=== PATIENT | female | born 1945 | race Caucasian/White ===

== ENCOUNTER 2016-04-23 15:49 | Inpatient (IN) | payer MEDICARE, OTHER ==
[2016-04-23 15:59] VITALS: BP 124/70
--- NOTE | 2016-04-23 16:40 | ED Physician Chart ---
Chief Complaint/HPI - Patient Information Date Seen:: 04/23/16 Time Seen:: 16:07 Chief Complaint:: psychosis History of Present Illness:: THIS IS A 70 YR OLD FEMALE SENT FROM THE [facility] FOR [facility]ALUATION AND TREATMENT BECAUSE SHE REFUSED HER MEDICATIONS. SHE HAS BEEN ACTING OUT. SHE HAS THYROID DISEASE,ARTHRITIS AND SEVERE DEPRESSION. Allergies:: Allergies Allergy/AdvReac Type Severity Reaction Status Date / Time etanercept AdvReac Verified 04/23/16 15:52 ibuprofen AdvReac Verified 04/23/16 15:52 Vitals:: Vital Signs - 8 hr 04/23/16 04/23/16 15:59 16:00 Temp 97.9 F HR 84 RR 16 BP 124/70 124/70 O2 Sat % 97 Historian:: Patient, Medical Records Review:: Nurse's Note Reviewed Review of Systems - Review of Systems General/Constitutional: No fever, No chills, No weight loss, No weakness, No diaphoresis, No edema, No loss of appetite Skin: No skin lesions, No rash, No bruising Head: No headache, No light-headedness Eyes: No loss of vision, No pain, No diplopia ENT: No earache, No nasal drainage, No sore throat, No tinnitus Neck: No neck pain, No swelling, No thyromegaly, No stiffness, No mass noted Cardio Vascular: No chest pain, No palpitations, No PND, No orthopnea, No edema Pulmonary: No SOB, No cough, No sputum, No wheezing GI: No nausea, No vomiting, No diarrhea, No pain, No melena, No hematochezia, No constipation, No hematemesis G/U: No dysuria, No frequency, No hematuria Musculoskeletal: Bone or joint pain, No back pain, No muscle pain, Other (BOTH HANDS AND BOTH FEET A) Endocrine: No polyuria, No polydipsia Psychiatric: Prior psych history, Depression, No anxiety, No suicidal ideation Hematopoietic: No bruising, No lymphadenopathy Allergic/Immuno: No urticaria, No angioedema Neurological: No syncope, No focal symptoms, No weakness, No paresthesia, No headache, No seizure, No dizziness, No confusion, No vertigo Past Medical History - Past Medical History Obtainable: Yes Past Medical History: Thyroid disorder, Arthritis Family History: None Social History: Non Smoker, No Alcohol, No Drug Use Surgical History: None Psychiatricy History: Depression Medication: Reviewed Family Medical History - Family Member Sister History Unknown: Yes Physical Exam - Physical Examination General/Constitutional: Awake, Well-developed, well-nourished, Alert, No distress, GCS 15, Non-toxic appearing, Ambulatory Head: Atraumatic Eyes: Lids, conjuctiva normal, PERRL, EOMI Skin: Nl inspection, No rash, No skin lesions, No ecchymosis, Well hydrated, No lymphadenopathy ENMT: External ears, nose nl, Nasal exam nl, Lips, teeth, gums nl Neck: Nontender, Full ROM w/o pain, No JVD, No nuchal rigidity, No bruit, No mass, No stridor Respiratory: Nl effort/Exclusion, Clear to Auscultation, No Wheeze/Rhonchi/Rales Cardio Vascular: RRR, No murmur, gallop, rubs, NL S1 S2 GI: No tenderness/rebounding/guarding, No organomegaly, No hernia, Normal BS's, Nondistended, No mass/bruits, No McBurney tenderness : No CVA tenderness Extremities: No tenderness or effusion, Full ROM, normal strength in all extremities, No edema, Normal digits & nails Other Extremities comments:: THERE IS SEVERE DEFORMITY OF BOTH THE HANDS AND FEET SECONDARY TO RA. Neuro/Psych: Alert/oriented, DTR's symmetric, Normal sensory exam, Normal motor strength, Judgement/insight normal, Mood normal (DEPRESSION), Normal gait, No focal deficits Misc: normal gait, Normal back, No paraspinal tenderness Labs/Radiology/EKG Results - Lab Results Results: Abnormal Lab Results 04/23/16 04/23/16 04/23/16 16:15 16:15 16:15 WBC 10.1 RBC 5.26 H Hgb 14.9 Hct 44.9 MCV 85.3 MCH 28.3 MCHC Differential 33.1 RDW 14.5 Plt Count 382 MPV 7.1 Neutrophils % 66.4 Lymphocytes % 26.8 Monocytes % 3.2 Eosinophils % 2.0 Basophils % 1.6 PT 11.1 INR 1.07 Sodium Potassium Chloride Carbon Dioxide Anion Gap BUN Creatinine Est GFR ( Amer) Est GFR (Non-Af Amer) BUN/Creatinine Ratio Glucose Calcium Total Bilirubin AST ALT Alkaline Phosphatase Troponin I Total Protein Albumin Globulin Albumin/Globulin Ratio Triglycerides 93 Cholesterol 184 LDL Cholesterol Direct 132 HDL Cholesterol 38 Urine Source Urine Color Urine Clarity Urine pH Ur Specific [place] Urine Protein Urine Glucose (UA) Urine Ketones Urine Blood Urine Nitrate Urine Bilirubin Urine Urobilinogen Ur Leukocyte Esterase Urine RBC Urine WBC Ur Epithelial Cells Urine Bacteria 04/23/16 04/23/16 04/23/16 16:15 16:15 16:30 WBC RBC Hgb Hct MCV MCH MCHC Differential RDW Plt Count MPV Neutrophils % Lymphocytes % Monocytes % Eosinophils % Basophils % PT INR Sodium 142 Potassium 3.5 Chloride 109 H Carbon Dioxide 23.4 Anion Gap 13.1 BUN 20 Creatinine 0.5 L Est GFR ( Amer) TNP Est GFR (Non-Af Amer) TNP BUN/Creatinine Ratio 40.0 Glucose 102 Calcium 10.9 H Total Bilirubin 0.5 AST 21 ALT 13 Alkaline Phosphatase 67 Troponin I < 0.01 L Total Protein 8.5 H Albumin 4.2 Globulin 4.3 Albumin/Globulin Ratio 1.0 Triglycerides Cholesterol LDL Cholesterol Direct HDL Cholesterol Urine Source CLEAN C Urine Color YELLOW Urine Clarity HAZY Urine pH 6.0 Ur Specific Bend Urine Protein 30 H Urine Glucose (UA) NEGATIVE Urine Ketones 40 H Urine Blood MODERATE H Urine Nitrate POSITIVE H Urine Bilirubin NEGATIVE Urine Urobilinogen 0.2 Ur Leukocyte Esterase SMALL H Urine RBC 2-5 Urine WBC 10-25 H Ur Epithelial Cells OCCASIONAL Urine Bacteria MANY - Radiology Results Results: CHEST X-RAY = NAD - EKG Interpretations EKG Time:: 16:27 Rhythm: SINUS TACH [place]: LEFT Rate: 106 ED Septic Shock - . Is Septic Shock (SBP<90, OR Lactate>4 mmol\L) present?: No - <6hrs of presentation: Vital Signs: Vital Signs - 8 hr 04/23/16 04/23/16 15:59 16:00 Temp 97.9 F HR 84 RR 16 BP 124/70 124/70 O2 Sat % 97 Reassessment (Disposition) - Reassessment Reassessment Condition:: Unchanged - Diagnosis Diagnosis:: PSYCHOSIS DEPRESSION SEVERE RA URINARY TRACT INFECTION - Patient Disposition Discharge/Transfer:: Acute Care w/in this hosp Admitting Medical Physician:: Rhys Justin Admitting Psych Physician:: Addy Chadwick Condition at Disposition:: Unchanged ED Discharge Plan - Patient Disposition Instructions: Psychosis
[2016-04-23 16:42] LABS: % BASOPHILS 1.6 % (0.0-2.0); % LYMPHOCYTES 26.8 % (20.0-50.0); % MONOCYTES 3.2 % (2.0-10.0); % NEUTROPHILS 66.4 % (40.0-80.0); HEMATOCRIT 44.9 % (35.0-45.0); HEMOGLOBIN 14.9 gm/dL (11.7-16.1); MEAN CELL VOLUME 85.3 fl (81-100); MEAN CORPUSCULAR HEMOGLOBIN 28.3 pg (27.0-31.0); MEAN CORPUSCULAR HGB CONC 33.1 pg (28.0-36.0); MEAN PLATELET VOLUME 7.1 fl; NEUTROPHILE ABSOLUTE 6.7 Th/cmm (1.8-8.0); PLATELET COUNT 382 Th/cmm (150-400); RED BLOOD COUNT 5.26 Mil/cmm (3.80-5.20); RED CELL DISTRIBUTION WIDTH 14.5 % (11.5-20.0); WHITE BLOOD COUNT 10.1 Th/cmm (4.8-10.8)
[2016-04-23 16:53] LABS: INR 1.07 (0.5-1.4); PROTHROMBIN TIME (TEST) 11.1 SECONDS (9.5-11.5)
[2016-04-23 16:56] LABS: ALKALINE PHOSPHATASE 67 U/L (34-104); ANION GAP 13.1 (7.0-16.0); BILIRUBIN,TOTAL 0.5 mg/dL (0.3-1.0); BUN - UREA NITROGEN 20 mg/dL (7-25); CALCIUM SERUM 10.9 mg/dL (8.6-10.3); CARBON DIOXIDE 23.4 mEq/L (21.0-31.0); CHLORIDE 109 mEq/L (98-107); CREATININE - SERUM 0.5 mg/dL (0.6-1.2); GLUCOSE 102 mg/dL (70-105); POTASSIUM SERUM 3.5 mEq/L (3.5-5.1); SGOT 21 U/L (13-39); SGPT/ALT 13 U/L (7-52); SODIUM SERUM 142 mEq/L (136-145)
[2016-04-23 16:57] LABS: CHOLESTEROL 184 mg/dL (<200); TRIGLYCERIDES 93 mg/dL (<150)
[2016-04-23 17:12] LABS: URINE BILIRUBIN NEGATIVE (NEGATIVE); URINE BLOOD MODERATE (NEGATIVE); URINE COLOR YELLOW; URINE GLUCOSE (UA) NEGATIVE (NEGATIVE); URINE KETONE 40 mg/dL (NEGATIVE); URINE PROTEIN 30 mg/dL (NEGATIVE); URINE UROBILINOGEN 0.2 E.U./dL (0.2 - 1.0)
[2016-04-23 17:13] LABS: URINE BACTERIA MANY /hpf (NONE SEEN); URINE EPITHELIAL CELLS OCCASIONAL /lpf (FEW)
[2016-04-23] MEDS ORDERED: Maalox 30 mL Cup PO PRN (21:13)
[2016-04-23] MEDS ORDERED: Magnesium Hydroxide (MOM) 30 mL UDC PO PRN (21:13)
[2016-04-24] MEDS: Levothyroxine 0.05 Mg Tab PO SCH (06:36)
[2016-04-24] MEDS ORDERED: Budesonide 0.5 Mg/2 mL Ud HHN ONE (06:44)
[2016-04-24] MEDS ORDERED: Albuterol/Ipratropium Neb 3 ML AERS HHN ONE (06:44)
[2016-04-24] MEDS: Hydroxychloroquine 200 mg Tab PO SCH (08:43)
[2016-04-24] MEDS: Multivitamin Tab PO SCH (08:43)
--- NOTE | 2016-04-24 09:17 | Diagnostic Imaging Report ---
CHEST X-RAY: AP view INDICATION: pain COMPARISON: None FINDINGS: Suboptimal lung volume seen with increased bibasal linear densities. No focal consolidation or pleural effusions. Mild chronic changes are seen. Heart size cannot be well assessed on this exam. Degenerative changes of the spine and shoulders are noted. Gas-filled loops of bowel are seen with associated elevation of the diaphragm. IMPRESSION: Suboptimal lung volume with increased bibasal linear markings favoring atelectasis. No focal consolidation identified Gas-filled loops of bowel possibly due to an ileus. Please correlate clinically.
[2016-04-24] MEDS: Sulfamethoxazole/TMP 800/160mg Tab PO SCH (17:10)
--- NOTE | 2016-04-24 22:48 | Consultation ---
HISTORY OF PRESENT ILLNESS: The patient is a 70-year-old female seen at Geropsych Unit at [facility]. PAST MEDICAL HISTORY: Significant for advanced rheumatoid arthritis, hypothyroidism, ____, gastritis, osteoarthritis, osteoporosis, and psychosis. SOCIAL HISTORY: No history of smoking or alcohol abuse. OBSTETRIC HISTORY: P2+0. Menses, postmenopausal. REVIEW OF SYSTEMS: The patient has extensive arthritic pain. PHYSICAL EXAMINATION: GENERAL: Slightly obese female in no obvious respiratory distress. VITAL SIGNS: Include a blood pressure of 110/70, heart rate of 88, and respiration rate of 18. SKIN: Showed no obvious cellulitis. HEENT: Pale conjunctivae. NECK: Supple. LUNGS: There is no rhonchi and no crepitation or bronchial breathing. CARDIOVASCULAR: S1 present. ABDOMEN: Soft, minimal epigastric tenderness. Bowel sound are good. EXTREMITIES: Advanced rheumatoid arthritis with contracture deformities. NEUROLOGIC: The patient had no focal motor deficits. LABORATORY DATA: Include sodium 142, potassium 3.5, chloride 109, bicarbonate 23.4, BUN 20, creatinine 0.5, and glucose of 102. White count of 10.1, hemoglobin 14.9, hematocrit 44.9, and platelet count of 382,000. MEDICAL DIAGNOSES: Include advanced rheumatoid arthritis, osteoporosis, hypothyroidism, , gastritis, osteoarthritis, and glaucoma. TREATMENT PLAN: The patient is on Plaquenil, Xalatan, Synthroid, Pepcid, folic acid, and Colace. Thanks Dr. Chadwick for letting me see your patient. [facility]# [id number]
--- NOTE | 2016-04-24 23:11 | Psychosocial Evaluation ---
IDENTIFYING DATA: The patient is a 70-year-old resident of a community ____ care facility. Information obtained by interviewing the patient as well as reviewing the admission papers and it is reliable. JUSTIFICATION OF HOSPITALIZATION: The patient is admitted here on a voluntary basis in view of her depression and refusal to comply with the treatment. CHIEF COMPLAINT: "I'm already taking 10 different medications, so, I don't want to take anymore." HISTORY OF PRESENT ILLNESS: This is the first psychiatric hospitalization to the [facility] for this patient who is reported to have been depressed and psychotic and has been refusing to comply with the treatment. The patient is on sertraline 50 mg and then Abilify 20 mg at bedtime, but the patient at this time is stating that she does not need to be on these high doses of medication, she should not be taking any. The patient has been convinced at least to try the half the dose of the medication, but the patient is stating that she should not be ____. The patient's coping skills at this time are noted to be very poor. The patient is not able to comply with the treatment. PAST PSYCHIATRIC HISTORY: Details are not known. MEDICAL HISTORY AND PHYSICAL EXAMINATION: Requested by Dr. Justin. SUBSTANCE ABUSE HISTORY: None. PHYSICAL OR SEXUAL ABUSE HISTORY: None. LEGAL PROBLEMS: None at this time. STRENGTH AND ASSETS: The patient is poorly motivated. MENTAL STATUS EXAMINATION: The patient is a 70-year-old, looking her stated age, superficially cooperative. Eye contact is poor. Mood is noted to be irritable. Affect is constricted. The patient's coping skills are noted to be very poor. Sleep and appetite are also noted to be very poor. The patient is stating that she has been with all these medical problems and has been on several different medications and does not need to take one more. The patient at this time is not able to contract for safety. The patient is alert and oriented x 3. The patient's short and long-term memory noted to be intact. DIAGNOSTIC IMPRESSION: AXIS I: Major depressive disorder, recurrent with psychotic symptoms. AXIS II: None. AXIS III: As per Dr. Justin. IMMEDIATE TREATMENT PLAN: The patient is going to be observed and provided with supportive psychotherapy. Once stabilized, the patient is going to be discharged to [facility] to be followed up on an outpatient basis. [facility]# [id number]
[2016-04-25] MEDS: Levothyroxine 0.05 Mg Tab PO SCH (06:34)
[2016-04-25] MEDS: Hydroxychloroquine 200 mg Tab PO SCH (08:50)
[2016-04-25] MEDS: Multivitamin Tab PO SCH (08:50)
[2016-04-25] MEDS: Sulfamethoxazole/TMP 800/160mg Tab PO SCH ×2 (08:50→17:03)
--- NOTE | 2016-04-25 23:48 | Progress Notes ---
PSYCHIATRIC PROGRESS NOTE TIME PATIENT SEEN: 8:30 a.m. SUBJECTIVE: Staff was spoken to. The patient is interviewed. Mood is noted to be irritable. Affect is constricted. The patient is stating that she should not be taking any medications, there is no point in continuing. The patient is still depressed. Coping skills are noted to be very poor. The patient has paranoia, but the patient is denying any command hallucinations today. ASSESSMENT: The patient is still depressed and psychotic. PLAN: Continue the patient with a supportive therapy. I encouraged the patient to come and verbalize the concerns rather than to act out. JOB# [id number]
[2016-04-26] MEDS: Levothyroxine 0.05 Mg Tab PO SCH (06:48)
[2016-04-26] MEDS: Hydroxychloroquine 200 mg Tab PO SCH (09:13)
[2016-04-26] MEDS: Sulfamethoxazole/TMP 800/160mg Tab PO SCH ×2 (09:13→17:05)
[2016-04-26] MEDS: Multivitamin Tab PO SCH (09:13)
[2016-04-26] MEDS: Vitamin B Complex w/Vitamin C Tab PO SCH (17:22)
--- NOTE | 2016-04-26 21:38 | Progress Notes ---
PSYCHIATRIC PROGRESS NOTE TIME PATIENT SEEN: 9:30 a.m. SUBJECTIVE: Staff was spoken to. The patient is interviewed. Mood is noted to be depressed. Affect is constricted. The patient is isolative and withdrawn. The patient's daughter has been spoken at [phone] and she also has been trying to convince her mother to comply with the treatment. The patient at this time is very reluctant and is stated that she has been on these medications for a long period of time and would rather not take it. ASSESSMENT: The patient is still depressed. PLAN: To continue the patient with the supportive therapy. I encouraged the patient to verbalize the concerns rather than to act out. [facility]# [id number]
[2016-04-27] MEDS: Levothyroxine 0.05 Mg Tab PO SCH (06:34)
[2016-04-27] MEDS: Hydroxychloroquine 200 mg Tab PO SCH (09:30)
[2016-04-27] MEDS: Vitamin B Complex w/Vitamin C Tab PO SCH (09:30)
[2016-04-27] MEDS: Sulfamethoxazole/TMP 800/160mg Tab PO SCH ×2 (09:30→16:19)
[2016-04-27] MEDS: Multivitamin Tab PO SCH (09:30)
--- NOTE | 2016-04-27 22:45 | Progress Notes ---
TIME PATIENT SEEN: 4:30 p.m. SUBJECTIVE: Staff was spoken to. The patient is interviewed. Mood is a little bit depressed. Affect is constricted. The patient is stating that she does not want to continue to take the medications. The patient is stating that she has been on them for a long period of time and does not need it. The patient has been having difficult time to cope with the stress. The patient is also refusing to eat. ASSESSMENT: The patient is still depressed and paranoid. PLAN: To continue the patient with the supportive therapy. I encouraged the patient to verbalize the concerns as mentioned in the previous chart. The patient's daughter has already been spoken to and explained about the patient's condition. [facility]# [id number]
[2016-04-28] MEDS: Levothyroxine 0.05 Mg Tab PO SCH (06:57)
[2016-04-28] MEDS: Sulfamethoxazole/TMP 800/160mg Tab PO SCH ×2 (08:03→16:00)
[2016-04-28] MEDS: Vitamin B Complex w/Vitamin C Tab PO SCH (08:03)
[2016-04-28] MEDS: Multivitamin Tab PO SCH (08:03)
[2016-04-28] MEDS: Hydroxychloroquine 200 mg Tab PO SCH (08:03)
--- NOTE | 2016-04-28 23:40 | Progress Notes ---
TIME PATIENT SEEN: 5:00 p.m. SUBJECTIVE: Staff was spoken to. The patient is interviewed. Mood is noted to be irritable. Affect is constricted. The patient is stating that she is sick and tired of taking all the medications and does not want to be on any medications any longer. The patient is stating that she had breakfast and lunch and she is not stopping____. ASSESSMENT: The patient is depressed, but she is reluctant to take the medication. PLAN: To continue the patient with the supportive therapy. I encouraged the patient to verbalize the concerns rather than to act out. JOB# [id number]
[2016-04-29] MEDS: Levothyroxine 0.05 Mg Tab PO SCH (06:54)
[2016-04-29] MEDS: Multivitamin Tab PO SCH (08:08)
[2016-04-29] MEDS: Hydroxychloroquine 200 mg Tab PO SCH (08:08)
[2016-04-29] MEDS: Sulfamethoxazole/TMP 800/160mg Tab PO SCH ×2 (08:09→16:36)
[2016-04-29] MEDS: Vitamin B Complex w/Vitamin C Tab PO SCH (08:09)
--- NOTE | 2016-04-30 01:07 | Progress Notes ---
PSYCHIATRIC PROGRESS NOTE TIME PATIENT SEEN: 10:45 a.m. SUBJECTIVE: Staff was spoken to. The patient is interviewed. Mood is noted to be anxious. The patient is stating that she needs to be out of here from the hospital and she states that she is not willing to take any medication; however, ____. The patient is stating that there is no need for her to be on the medications. The patient has been not eating. Sleep is noted to be poor. The patient has been encouraged to comply with the treatment. The patient, however, has been very reluctant. The patient, however, is not presenting with any threat to harm self or others. This has been conveyed to her daughter. The patient is going to be closely monitored. If she continues to be like this, the director of casework services is going to be contacted with regards to possible disposition of returning the patient back to the placement. JOB# [id number]
[2016-04-30] MEDS: Levothyroxine 0.05 Mg Tab PO SCH (06:39)
[2016-04-30] MEDS: Hydroxychloroquine 200 mg Tab PO SCH (08:21)
[2016-04-30] MEDS: Multivitamin Tab PO SCH (08:21)
[2016-04-30] MEDS: Sulfamethoxazole/TMP 800/160mg Tab PO SCH (08:22)
[2016-04-30] MEDS: Vitamin B Complex w/Vitamin C Tab PO SCH (08:22)
--- NOTE | 2016-05-01 00:49 | Progress Notes ---
TIME PATIENT SEEN: 8:30 a.m. SUBJECTIVE: Staff was spoken to. The patient is interviewed. Mood is noted to be irritable. Affect is constricted. The patient is stating that she is not suicidal, she is not homicidal. There is no reason for her to be in here____, she has multiple medical problems and has been coping with them. The patient is denying any command hallucinations. However, has been refusing to comply with the treatment. So far, the patient has not acted out and hence it is decided to discharge the patient back to the facility and then advised the patient to work with the outpatient psychiatrist. JOB# [id number]
--- NOTE | 2016-05-17 00:13 | Discharge Summary ---
IDENTIFYING DATA: The patient is a 70-year-old resident of a community care facility. JUSTIFICATION OF HOSPITALIZATION: The patient is admitted on a voluntary basis in view of her depression and refusal to comply with the treatment. CHIEF COMPLAINT: "I am already taking 10 different medications, I don't want to take any more." DIAGNOSIS ____: AXIS I: Major depressive disorder, recurrent with psychotic symptoms. SECONDARY DIAGNOSIS: None. MEDICAL DIAGNOSES: Advanced rheumatoid arthritis, hypothyroidism, gastritis, and glaucoma. HOSPITAL COURSE AND RESPONSE TO TREATMENT: The patient had the blood work done and is noted to be within normal limits. No major intervention was needed. The patient has been started on the Zoloft, which has been given at 50 mg. The patient has been encouraged to participate in the groups and verbalize the concern. The patient also has been placed on aripiprazole 20 mg at bedtime, which she has been taking for a long time and sertraline has been continued. The patient started to do fairly well and the patient was finally discharged with recommendation that she is going to be seeking treatment on an outpatient basis. MENTAL STATUS EXAMINATION: At the time of discharge, the patient's mood is noted to be anxious. Affect is appropriate, not suicidal or homicidal. Insight and judgment are noted to be improving. Impulse control seems to be fair. No side effects to the medications are noted. The patient has been able to verbalize the concerns rather than to act out at the time of the discharge. The patient has been known to be on a high dose of the Abilify, but the patient is stating that she has been taking the dose for a long time ____. DIAGNOSIS AT THE TIME OF DISCHARGE: AXIS I: Major depressive disorder, recurrent with psychotic symptoms. SECONDARY DIAGNOSIS: None. MEDICAL DIAGNOSIS: Rheumatoid arthritis. AFTERCARE PLAN: The patient is discharged to ____ to be followed up on an outpatient basis. PROGNOSIS: At the time of discharge noted to be fair with the treatment. JOB# [id number]
== END 2016-04-30 15:00 | DRG 885 ==
LOC: EDSEX 15:49 → ER 15:49 → GERO 18:00
PROVIDERS: ADMIT Psychiatry & Neurology Psychiatry; ATTEND Psychiatry & Neurology Psychiatry
DX: F33.3 Major depressive disorder, recurrent, severe with psychotic symptoms (principal); N39.0 Urinary tract infection, site not specified; M06.9 Rheumatoid arthritis, unspecified; H40.9 Unspecified glaucoma; M81.0 Age-related osteoporosis without current pathological fracture; E03.9 Hypothyroidism, unspecified; Z88.6 Allergy status to analgesic agent; Z88.8 Allergy status to other drugs, medicaments and biological substances
CPT/HCPCS: 36415-UA; 71010-TC; 80053-TC; 80061-TC; 81001-TC; 84443-TC; 84484-TC; 85025-TC; 85610-TC; 86592-TC; 87086-90; 93005; J0696; J2001; Z7610